=== PATIENT | male | born 1960 | race Hispanic/Latino ===

== ENCOUNTER 2023-11-28 08:10 | Day surgery (SDC) | payer OTHER ==
[2023-11-28] VITALS (10 sets, daily range): BP systolic 93–125; BP diastolic 56–87; PULSE 56–80; RESP 14–18; TEMP 97–97.7
[~2023-11-28] VITALS: Ht 175.3 cm; Wt 76.7 kg
[~2023-11-28 08:10] MED LIST: 0.9%NACL 1000ML 1,000 ML IV ONE; TRAM50TA4 PO
[2023-11-28] MEDS: 0.9%NACL 1000ML 1,000 ML IV ONE (08:40)
[2023-11-28] MEDS ORDERED: LIDOCAINE HCL 400MG/20ML VIAL ONE (10:53)
[2023-11-28] MEDS ORDERED: proPOFol 10 MG/ML 20ML VIAL IV ONE (10:53)
== END 2023-11-28 12:29 | disposition home or self-care (01) ==
LOC: ENDO 08:10 → DAH 08:10 → ENDO 12:29
PROVIDERS: ATTEND Internal Medicine Gastroenterology
DX: R93.3 Abnormal findings on diagnostic imaging of other parts of digestive tract (principal); K83.1 Obstruction of bile duct; K31.5 Obstruction of duodenum; R93.2 Abnormal findings on diagnostic imaging of liver and biliary tract; R94.5 Abnormal results of liver function studies; Z86.010 Personal history of colon polyps; Z85.841 Personal history of malignant neoplasm of brain; Z79.899 Other long term (current) drug therapy
CPT/HCPCS: 43238; 43239; 43242; J2704; J3490; J7030; A4215; A4620